=== PATIENT | male | born 1945 | race Caucasian/White ===

== ENCOUNTER → 2017-04-21 | Outpatient (CLI) | payer OTHER ==
[~2017-04-21] MED LIST: ASPIRIN81 M1 PO; ASPIRIN81 MG PO; ATORVASTATIN CA10 MG PO; AVODART0.5 MG PO; CARAFATE PO; CHANTIX1 DOSE-PAC; FLOMAX0.4 M1 PO; MULTI-DAY VITAM1 TAB PO; MULTIVITAMINS1 EAC3 PO; NEXIUM PO; SPIRIVA18 MCG INH; VYTORIN PO; ZYRTEC10 M2 PO
--- NOTE | ~2017-04-21 | CT55 ---
[facility] A Service of [facility] & [facility] RADIOLOGY TEXT RESULTS PATIENT: LILA CASTELLANO LOCATION: [facility] : 45 UNIT #: [id number] AGE: [address]: Neil Maher MD SEX: M ORDER DR: [id number] [facility]. [place], [place] [address] [id number] O MR#: [id number] Acc #: [id number] NAME: LILA CASTELLANO. : 1945 SEX: M STUDY DATE/TIME: 04/21/2017 10:26 UNIT: [facility] ROOM: STUDY DESCRIPTION: CT Chest W Con Attending Physician: Neil Maher M.D. Referring Physician: Neil Maher M.D. Ordering Physician: Neil Maher M.D. Primary Care Physician: Pito Powell M.D. MEDICAL IMAGING REPORT This report is preliminary unless electronic signature is present EXAM CT chest with contrast 04/21/2017. HISTORY Dyspnea. Abnormal chest x-ray, R 91.8. Chest x-ray at Dr. Maher's office. Dyspnea for [address] of the chest performed with intravenous administration of 70 mL Isovue-370. This CT exam was performed with one or more of the following radiation dose reduction techniques: automatic exposure control, adjustment of mA and/or kV according to patient size, and iterative reconstruction. COMPARISON Comparison to CT chest 07/06/2012. No interval CT of the chest for comparison. Reportedly abnormal chest radiograph from outside office not made available for review. Comparison with abnormal examination recommended. Comparison also made to limited views of the lower thorax from CT abdomen and pelvis 03/20/2016. FINDINGS Thyroid unremarkable. No axillary adenopathy. 8 mm short-axis pretracheal lymph node decreased in size from prior study when it measured 1 cm. Indeterminate borderline prominent 8 mm short-axis right hilar nodes. Slightly more pronounced than in 2011. Attention at followup recommended. No clearly pathologically enlarged mediastinal or hilar nodes. No pleural effusions. The visualized portions of liver unremarkable. Uncomplicated cholelithiasis. Spleen, pancreas, adrenal glands notable for indeterminate 1-cm nodule right adrenal gland. Given [facility]. [facility] A Service of [facility] & [facility] RADIOLOGY TEXT RESULTS PATIENT: LILA CASTELLANO LOCATION: [facility] : 45 UNIT #: [id number] AGE: [address]: Neil Maher MD SEX: M ORDER DR: findings elsewhere on the examination, metastatic disease is a consideration. Best further evaluated with CT PET scan when clinically appropriate for the patient. Exophytic 7 mm nodule from posterior aspect of the right hepatic lobe. More conspicuous than in 2012, but not significantly changed, also seen on the CT examination 03/20/2016. The kidneys show a 1.8 cm ISO dense nodule posterior mid left kidney. Not a simple cyst. The possibility of a complicated cyst could be considered. Solid nodule is a strong consideration. Primary renal neoplasm or possible renal metastatic disease. Best further evaluated with ultrasound or multiphase contrast-enhanced CT when clinically appropriate for the patient. Not present in 2012. This structure should be viewed with some suspicion given its CT appearance. There is a large hiatal hernia. Majority of the stomach is in the thorax. This is more pronounced than on the prior examination. The visualized small bowel and colon are unremarkable. Pulmonary parenchyma shows extensive emphysema. Spiculated mass in the right upper lobe extending to the apical pleura and measuring approximately 4.5 cm x 3.2 cm x 3.3 cm. There are some internal calcifications which were present in 2012 when there was an area of stable linear fibrotic change in this region. This mass is strongly concerning for bronchogenic malignancy and is best further evaluated with CT PET scan, bronchoscopic evaluation or percutaneous sampling. Given the marked adjacent emphysema, patient may be at significant risk for pneumothorax if this mass is biopsied. There is a second irregularly marginated mass in the right lower lobe also abutting the pleura and measuring 3.1 cm x 2.4 cm x 2 cm, also strongly concerning for malignancy. There is some peripheral air density which is favored to represent pulmonary parenchyma subsumed by the mass. It does not have the typical appearance of cavitation. There is apical fibrotic change in the lungs. There is no evidence of acute infectious or inflammatory disease. A subcentimeter noncalcified nodule in the left lower lobe, (image 52) is unchanged. No other pulmonary nodules are seen. Atherosclerotic arterial calcifications. No aortic aneurysm. Visualized pulmonary arteries are unremarkable. The bony structures show multilevel spinal degenerative change. No acute-appearing bony abnormality. No aggressive bony lesion suggested. IMPRESSION 1. Abnormal examination. Please see complete dictation above for full details. There are 2 pulmonary mass lesions concerning for malignancy. 1 of these is in the right upper lobe toward the apex, measuring up to 4.5 cm in diameter. The second is in the posterior left lower lobe, measuring up to 3.1 cm in diameter. These are strongly concerning for malignancy. Primary bronchogenic carcinoma favored. They could be further evaluated with CT PET scan, bronchoscopy, or percutaneous sampling. The left lower lobe lesion may be more amenable to percutaneous sampling. Patient has extensive STS. [facility] A Service of [facility] RADIOLOGY TEXT RESULTS PATIENT: LILA CASTELLANO LOCATION: [facility] : 45 UNIT #: [id number] AGE: [address]: Neil Maher MD SEX: M ORDER DR: underlying emphysema and may be at significant increased risk for pneumothorax with percutaneous sampling. 2. There are some minimally prominent mediastinal and hilar nodes. They are not pathologically enlarged. The right hilar nodes are more pronounced than 2012. Nonspecific appearance overall. Attention at followup recommended. 3. A noncalcified subcentimeter nodule at the left lung base is stable compared to 2012. 4. There is a 1 cm right adrenal nodule which does not meet criteria for adrenal adenoma on basis of this examination. It does appear to be new compared to 2012. Adenoma not excluded but metastatic disease is in differential diagnosis. Correlation with CT PET scan or adrenal protocol MRI recommended when clinically appropriate for patient. 5. Nearly ISO dense nodule posterior left mid kidney. This may represent a complicated cyst with internal proteinaceous fluid. Solid neoplastic lesion not excluded. Primary renal malignancy versus metastatic disease could be considered. Best evaluated with ultrasound or multiphase contrast-enhanced CT. 6. Large hiatal hernia with majority of the stomach in the thorax. 7. Uncomplicated cholelithiasis. 8. Atherosclerotic arterial calcifications. No aneurysm. Dictated by... Jenaro Bernal M.D. THIS IS AN ELECTRONICALLY VERIFIED REPORT Jenaro Bernal M.D. at 04/21/2017 5:16 PM BROOKE/vandana TD: 04/21/2017 14:28 JOB #: [id number] MEDICAL IMAGING REPORT Page 1 of 1 COPY
[2017-04-21 10:21] LABS: POC - CREATININE 0.91 mg/dL (0.64-1.27); POC - GFR >60.0 mL/min (>60)
== END | disposition home or self-care (01) ==
LOC: CCAT 09:16
PROVIDERS: Internal Medicine
DX: R91.8 Other nonspecific abnormal finding of lung field (principal); R06.00 Dyspnea, unspecified; R93.8 Abnormal findings on diagnostic imaging of other specified body structures; J98.4 Other disorders of lung; R91.1 Solitary pulmonary nodule; E27.8 Other specified disorders of adrenal gland; N28.89 Other specified disorders of kidney and ureter; K44.9 Diaphragmatic hernia without obstruction or gangrene; K80.20 Calculus of gallbladder without cholecystitis without obstruction; I70.90 Unspecified atherosclerosis; K76.89 Other specified diseases of liver; J43.9 Emphysema, unspecified
CPT/HCPCS: 71260; 82565; Q9967

== ENCOUNTER → 2017-04-30 | Outpatient (CLI) | payer OTHER ==
--- NOTE | ~2017-04-30 | CR71 ---
[facility] A Service of [facility] & [facility] RADIOLOGY TEXT RESULTS PATIENT: LILA CASTELLANO LOCATION: [facility] : 45 UNIT #: [id number] AGE: [address]: Neil Maher MD SEX: M ORDER DR: [id number] [facility] [address] [facility] [place] [facility]. [place], [place] [address] [id number] O MR#: [id number] Acc #: [id number] NAME: LILA CASTELLANO : 1945 SEX: M STUDY DATE/TIME: 04/30/2017 13:46 UNIT: [facility] ROOM: STUDY DESCRIPTION: CR Chest Single View Attending Physician: Neil Maher M.D. Referring Physician: Neil Maher M.D. Ordering Physician: Neil Maher M.D. Primary Care Physician: Pito Powell M.D. MEDICAL IMAGING REPORT This report is preliminary unless electronic signature is present NO JOB NUMBER GIVEN. FUSION JOB NUMBER IS [id number] EXAM Portable chest. HISTORY Status post right lung biopsy. FINDINGS An AP view is obtained. No pneumothorax is identified. Redemonstrated is the right upper lobe mass and the left lung mass. CONCLUSION Right upper and left midlung mass consistent with lung cancer. No pneumothorax. Dictated by... Jenaro Dunaway M.D. THIS IS AN ELECTRONICALLY VERIFIED REPORT Jenaro Dunaway M.D. at 05/02/2017 9:32 AM FRANKLIN/allie TD: 04/30/2017 19:04 JOB #: 0 MEDICAL IMAGING REPORT Page 1 of 1 COPY
--- NOTE | ~2017-04-30 | CR71 ---
[facility] A Service of [facility] & [facility] RADIOLOGY TEXT RESULTS PATIENT: LILA CASTELLANO [facility] : 45 UNIT #: [id number] AGE: [address]: Neil Maher MD SEX: M ORDER DR: [id number] [facility] [address] [facility]. [place], [place] [address] [id number] O MR#: [id number] Acc #: [id number] NAME: LILA CASTELLANO. : 1945 SEX: M STUDY DATE/TIME: 04/30/2017 11:25 UNIT: [facility] ROOM: STUDY DESCRIPTION: CR Chest Single View Attending Physician: Neil Maher M.D. Referring Physician: Neil Maher M.D. Ordering Physician: Neil Maher M.D. Primary Care Physician: Pito Powell M.D. MEDICAL IMAGING REPORT This report is preliminary unless electronic signature is present EXAM Portable chest INDICATIONS Status post right lung biopsy. Compared with chest CT from 04/21/2017 FINDINGS The patient is status post right lung biopsy. There is a mass in the region of the right apex. There is no evidence for pneumothorax. There is also a stable mass in the left lung. IMPRESSION No evidence for pneumothorax. Dictated by... Israel Hooper M.D. THIS IS AN ELECTRONICALLY VERIFIED REPORT Israel Hooper M.D. at 05/01/2017 7:17 AM SPENSER/kris TD: 04/30/2017 15:31 JOB #: [id number] MEDICAL IMAGING REPORT Page 1 of 1 COPY
--- NOTE | ~2017-04-30 | XA54 ---
[facility] A Service of [facility] & [facility] RADIOLOGY TEXT RESULTS PATIENT: LILA CASTELLANO LOCATION: [facility] : 45 UNIT #: [id number] AGE: [address]: Neil Maher MD SEX: M ORDER DR: [id number] [facility] [address] [facility]. [place], [place] [address] [id number] O MR#: [id number] Acc #: [id number] NAME: LILA CASTELLANO : 1945 SEX: M STUDY DATE/TIME: 04/30/2017 10:51 UNIT: [facility] ROOM: STUDY DESCRIPTION: XA BX Lung/Mediastinum Attending Physician: Neil Maher M.D. Referring Physician: Neil Maher M.D. Ordering Physician: Neil Maher M.D. Primary Care Physician: Pito Powell M.D. MEDICAL IMAGING REPORT This report is preliminary unless electronic signature is present EXAM Biopsy, lung/mediastinum. HISTORY Right upper and left lower lobe lung mass FINDINGS Please see CT-guided lung biopsy for results. Dictated by... Jenaro Dunaway M.D. THIS IS AN ELECTRONICALLY VERIFIED REPORT Jenaro Dunaway M.D. at 05/02/2017 9:32 AM FRANKLIN/babatunde TD: 05/01/2017 12:03 JOB #: [id number] MEDICAL IMAGING REPORT Page 1 of 1 COPY
--- NOTE | ~2017-04-30 | CT134 ---
[facility] A Service of [facility] RADIOLOGY TEXT RESULTS PATIENT: LILA CASTELLANO LOCATION: [facility] : 45 UNIT #: [id number] AGE: [address]: Neil Maher MD SEX: M ORDER DR: [id number] [id number] [facility]. [place], [place] [address] [id number] O MR#: [id number] Acc #: [id number] NAME: LILA CASTELLANO : 1945 SEX: M STUDY DATE/TIME: 04/30/2017 10:51 UNIT: [facility] ROOM: STUDY DESCRIPTION: CT Guide Attending Physician: Neil Maher M.D. Referring Physician: Neil Maher M.D. Ordering Physician: Neil Maher M.D. Primary Care Physician: Pito Powell M.D. MEDICAL IMAGING REPORT This report is preliminary unless electronic signature is present EXAM CT-guided lung biopsy. HISTORY Right upper and left lower lobe lung mass. TECHNIQUE This CT exam was performed with one or more of the following radiation dose reduction techniques: automatic exposure control, adjustment of mA and/or kV according to patient size, and iterative reconstruction. PROCEDURE Procedure, attendant risks and options were discussed at length with the patient. He understands and wishes to proceed. Right upper lobe mass was chosen for biopsy. Patient was scanned in the supine position and an appropriate site chosen. Skin was marked, prepped and draped utilizing maximal sterile barrier technique and local anesthesia and sterile gloves. The 17-gauge guide needle was advanced into the lesion. 18-gauge core specimens were obtained. The course of needle was extrapleural. Core specimens were obtained and placed in formalin. Procedure was very well tolerated. Needle was removed. Hemostasis achieved. Patient was subsequently monitored for 2 hours upstairs in the short-stay unit. Chest x-rays were negative x2. CONCLUSION Successful CT-guided biopsy of the right upper lobe mass. ADDENDUM Conscious sedation was provided consisting of IV Versed and fentanyl. The patient was monitored by the IR nurse during the entire procedure. Dictated by... [facility] A Service of [facility] & [facility] RADIOLOGY TEXT RESULTS PATIENT: LILA CASTELLANO LOCATION: [facility] : 45 UNIT #: [id number] AGE: [address]: Neil Maher MD SEX: M ORDER DR: Jenaro Dunaway M.D. THIS IS AN ELECTRONICALLY VERIFIED REPORT Jenaro Dunaway M.D. at 05/02/2017 9:33 AM Nidhi TD: 05/01/2017 11:59 JOB #: [id number] MEDICAL IMAGING REPORT Page 1 of 1 COPY
[2017-04-30 08:36] LABS: HEMATOCRIT 42.8 % (38.0-50.0); MEAN CELL VOLUME 104.6 FL (83-96); MEAN CORPUSCULAR HEMOGLOBIN 36.7 PG (28-34); MEAN CORPUSCULAR HGB CONC 35.1 g/dL (30-36); MEAN PLATELET VOLUME 7.2 FL (6.5-11.5); RED BLOOD COUNT 4.09 X10e (3.90-5.60); RED CELL DISTRIBUTION WIDTH 13.4 % (11.0-15.5); WHITE BLOOD COUNT 8.3 X10e3 (4.0-10.5)
[2017-04-30 08:49] LABS: PROTHROMBIN TIME (PATIENT) 10.8 SECONDS (10.0-11.7)
== END | disposition home or self-care (01) ==
LOC: CIVR 08:06
PROVIDERS: Internal Medicine
DX: C34.11 Malignant neoplasm of upper lobe, right bronchus or lung (principal); R91.8 Other nonspecific abnormal finding of lung field; J98.4 Other disorders of lung; G47.30 Sleep apnea, unspecified; J44.9 Chronic obstructive pulmonary disease, unspecified; K21.9 Gastro-esophageal reflux disease without esophagitis; F10.20 Alcohol dependence, uncomplicated; G47.33 Obstructive sleep apnea (adult) (pediatric); E83.119 Hemochromatosis, unspecified; Z79.82 Long term (current) use of aspirin; Z79.899 Other long term (current) drug therapy; Z87.891 Personal history of nicotine dependence
CPT/HCPCS: 36415; 71010; 77012; 85027; 85610; 85730; 88305; J2250; J3010

== ENCOUNTER → 2017-05-25 | Outpatient (CLI) | payer OTHER ==
[~2017-05-25] VITALS: Ht 180.3 cm; Wt 89.6 kg
--- NOTE | ~2017-05-25 | XA54 ---
[facility] A Service of [facility] RADIOLOGY TEXT RESULTS PATIENT: LILA CASTELLANO LOCATION: [facility] : 45 UNIT #: [id number] AGE: [address]: Elijah Edmondson MD SEX: M ORDER DR: [id number] [facility] [address] [facility]. [place], [place] [address] [id number] O MR#: [id number] Acc #: [id number] NAME: LILA CASTELLANO. : 1945 SEX: M STUDY DATE/TIME: 05/25/2017 10:15 [facility] RO[facility]: STUDY DESCRIPTION: XA BX Lung/Mediastinum Attending Physician: Elijah Edmondson M.D. Ordering Physician: Elijah Edmondson M.D. Primary Care Physician: Pito Powell M.D. MEDICAL IMAGING REPORT This report is preliminary unless electronic signature is present EXAM CT-guided left lung mass biopsy INDICATION Left lung mass. Biopsy requested. Previous right lung mass biopsy. MEDICATIONS 2.5 mg of Versed IV and 75 mcg of Fentanyl IV. Approximately 40 minutes of sedation time was monitored by appropriately credentialed radiology nursing staff with 18 minutes of face to face time provided by direct supervision from Dr. Hooper. TECHNIQUE/FINDINGS The risks, benefits, and alternatives of the procedure were discussed with the patient and informed consent was obtained. In the procedure room, time-out was performed confirming correct patient and procedure. All elements of maximum sterile barrier technique utilized according to guidelines appropriate for the procedure. This CT examination was performed with one or more of the following radiation dose reduction techniques: automatic exposure control, adjustment of mA and/or kV according to patient size, and iterative reconstruction. The patient was placed in the left decubitus position and a preliminary CT scan was performed identifying the mass in the posterior aspect of the left lung. The overlying skin was prepped and draped in the usual sterile fashion. 1% Lidocaine utilized to anesthetize the skin and underlying subcutaneous tissues. Next using full standard sterile barrier technique including sterile caps, gowns, gloves, masks, drapes, 2% Chlorhexidine for cutaneous antisepsis, a 17-gauge guide needle was advanced into the lesion. Through this access, a single core 18-gauge biopsy was obtained and sent to pathology. The needle was removed and a sterile dressing was applied. There were no immediate complications. [facility] A Service of [facility] RADIOLOGY TEXT RESULTS PATIENT: LILA CASTELLANO LOCATION: [facility] : 45 UNIT #: [id number] AGE: [address]: Elijah Edmondson MD SEX: M ORDER DR: IMPRESSION Technically successful CT-guided left lung mass biopsy. Dictated by... Israel Hooper M.D. THIS IS AN ELECTRONICALLY VERIFIED REPORT Israel Hooper M.D. at 05/27/2017 5:00 PM SPENSER/bill TD: 05/26/2017 10:51 JOB #: [id number] MEDICAL IMAGING REPORT Page 1 of 1 COPY
--- NOTE | ~2017-05-25 | CT134 ---
[facility] A Service of [facility] & [facility] RADIOLOGY TEXT RESULTS PATIENT: LILA CASTELLANO LOCATION: [facility] : 45 UNIT #: [id number] AGE: [address]: Elijah Edmondson MD SEX: M ORDER DR: [id number] [id number] [place], [place] [address] [id number] O MR#: [id number] Acc #: [id number] NAME: LILA CASTELLANO. : 1945 SEX: M STUDY DATE/TIME: 05/25/2017 10:15 UNIT: [facility] ROOM: STUDY DESCRIPTION: CT Guide Attending Physician: Elijah Edmondson M.D. Ordering Physician: Elijah Edmondson M.D. Primary Care Physician: Pito Powell M.D. MEDICAL IMAGING REPORT This report is preliminary unless electronic signature is present EXAM CT guide FINDINGS Please see XA BX Lung/mediastinum for results. Dictated by... Israel Hooper M.D. THIS IS AN ELECTRONICALLY VERIFIED REPORT Israel Hooper M.D. at 05/27/2017 5:01 PM SPENSER/bill TD: 05/26/2017 10:50 JOB #: [id number] MEDICAL IMAGING REPORT Page 1 of 1 COPY
--- NOTE | ~2017-05-25 | CR71 ---
[facility] A Service of [facility] & [facility] RADIOLOGY TEXT RESULTS PATIENT: LILA CASTELLANO LOCATION: [facility] : 45 UNIT #: [id number] AGE: [address]: Elijah Edmondson MD SEX: M ORDER DR: [id number] [facility] [address]. [place], [place] [address] [id number] O MR#: [id number] Acc #: [id number] NAME: LILA CASTELLANO. : 1945 SEX: M STUDY DATE/TIME: 05/25/2017 10:46 UNIT: [facility] ROOM: STUDY DESCRIPTION: CR Chest Single View Attending Physician: Elijah Edmondson M.D. Ordering Physician: Elijah Edmondson M.D. Primary Care Physician: Pito Powell M.D. MEDICAL IMAGING REPORT This report is preliminary unless electronic signature is present EXAM Portable chest INDICATIONS Follow up from left lung biopsy. Evaluate for pneumothorax. Comparison with 04/30/2017. FINDINGS Patient is status post left lung biopsy. No evidence for pneumothorax. Stable mass in the right apex and also in the left upper lobe. Heart size stable. IMPRESSION No pneumothorax following lung biopsy. Dictated by... Israel Hooper M.D. THIS IS AN ELECTRONICALLY VERIFIED REPORT Israel Hooper M.D. at 05/26/2017 7:46 AM SPENSER/joya TD: 05/26/2017 00:28 JOB #: [id number] MEDICAL IMAGING REPORT Page 1 of 1 COPY
--- NOTE | ~2017-05-25 | CR71 ---
[facility] A Service of [facility] & [facility] RADIOLOGY TEXT RESULTS PATIENT: LILA CASTELLANO LOCATION: [facility] : 45 UNIT #: [id number] AGE: [address]: Elijah Edmondson MD SEX: M ORDER DR: [id number] [facility] [address] [facility] [address] [place], [place] [address] [id number] O MR#: [id number] Acc #: [id number] NAME: LILA CASTELLANO. : 1945 SEX: M STUDY DATE/TIME: 05/25/2017 12:50 UNIT: [facility] ROOM: STUDY DESCRIPTION: CR Chest Single View Attending Physician: Elijah Edmondson M.D. Ordering Physician: Elijah Edmondson M.D. Primary Care Physician: Pito Powell M.D. MEDICAL IMAGING REPORT This report is preliminary unless electronic signature is present EXAM Portable chest INDICATIONS Post left lung biopsy. Comparison with earlier today. FINDINGS There is no evidence for pneumothorax. No new infiltrates. Stable bilateral masses. Heart size stable. IMPRESSION No evidence for pneumothorax. Dictated by... Israel Hooper M.D. THIS IS AN ELECTRONICALLY VERIFIED REPORT Israel Hooper M.D. at 05/26/2017 7:46 AM SPENSER/joya TD: 05/26/2017 00:57 JOB #: [id number] MEDICAL IMAGING REPORT Page 1 of 1 COPY
[2017-05-25 08:20] LABS: HEMATOCRIT 41.7 % (38.0-50.0); HEMOGLOBIN 14.5 gm/dL (13.0-16.0); MEAN CELL VOLUME 104.2 FL (83-96); MEAN CORPUSCULAR HEMOGLOBIN 36.3 PG (28-34); MEAN CORPUSCULAR HGB CONC 34.9 g/dL (30-36); MEAN PLATELET VOLUME 7.2 FL (6.5-11.5); RED CELL DISTRIBUTION WIDTH 12.7 % (11.0-15.5); WHITE BLOOD COUNT 7.5 X10e3 (4.0-10.5)
[2017-05-25 08:36] LABS: PARTIAL THROMBOPLASTIN TIME 26.4 SECONDS (23.5-31.3); PROTHROMBIN TIME (PATIENT) 10.8 SECONDS (10.0-11.7)
== END | disposition home or self-care (01) ==
LOC: CIVR 07:52
PROVIDERS: Internal Medicine Medical Oncology
PROC: 0BBL3ZX Excision of Left Lung, Percutaneous Approach, Diagnostic (ICD-10-PCS; principal; 2017-05-25)
DX: D02.22 Carcinoma in situ of left bronchus and lung (principal); J44.9 Chronic obstructive pulmonary disease, unspecified; J98.4 Other disorders of lung
CPT/HCPCS: 36415; 71010; 77012; 85027; 85610; 85730; 88305; 88312; J2250; J3010